=== PATIENT | male | born 1960 | race Caucasian/White ===

== ENCOUNTER → 2018-09-22 | Emergency (ER) | payer MEDICAID ==
[~2018-09-22] VITALS: Ht 170.2 cm; Wt 70.5 kg
[~2018-09-22] MED LIST: AZIT-63 PO; BENZ-16 PO; HYDR-3965 PO; IBUP-1986 PO
[2018-09-22 18:54] VITALS: BP 157/103
== END | disposition home or self-care (01) ==
LOC: ER 18:28
DX: S22.42XA Multiple fractures of ribs, left side, initial encounter for closed fracture (principal); S01.81XA Laceration without foreign body of other part of head, initial encounter; S01.21XA Laceration without foreign body of nose, initial encounter; F12.90 Cannabis use, unspecified, uncomplicated; Z88.5 Allergy status to narcotic agent; Z79.2 Long term (current) use of antibiotics; Z79.899 Other long term (current) drug therapy; Y04.2XXA Assault by strike against or bumped into by another person, initial encounter; Y93.55 Activity, bike riding; Y92.410 Unspecified street and highway as the place of occurrence of the external cause; Y99.8 Other external cause status
CPT/HCPCS: 71045; 99283

== ENCOUNTER 2018-12-26 17:43 | Emergency (ER) | payer MEDICAID ==
[~2018-12-26] VITALS: Ht 170.2 cm; Wt 72.7 kg
[~2018-12-26 17:43] MED LIST changes: -BENZ-16 PO; -HYDR-3965 PO
[2018-12-26] MEDS ORDERED: ipratropium/albuterol 3ml nebule NEB ONE (18:40)
[2018-12-26] MEDS ORDERED: albuterol 2.5 MG/3 ML nebule NEB ONE (18:40)
[2018-12-26] MEDS ORDERED: predniSONE 20 mg tablet PO ONE (18:40)
[2018-12-26] MEDS ORDERED: ALBU8HFA PO (19:00)
[2018-12-26] MEDS ORDERED: FLUT100D2 INH (19:00)
[2018-12-26] MEDS ORDERED: PRED20TA PO (19:00)
[2018-12-26 19:08] VITALS: BP 158/90
== END 2018-12-26 19:10 | disposition home or self-care (01) ==
LOC: ER 17:43
DX: J44.1 Chronic obstructive pulmonary disease with (acute) exacerbation (principal); F17.200 Nicotine dependence, unspecified, uncomplicated; F12.90 Cannabis use, unspecified, uncomplicated; Z88.6 Allergy status to analgesic agent
CPT/HCPCS: 93005; 94640; 94760; 99283; J7512

== ENCOUNTER 2019-08-14 01:45 | Inpatient (IN) | payer MEDICAID ==
[2019-08-14] VITALS (7 sets, daily range): BP systolic 143–166; BP diastolic 85–106
[~2019-08-14] VITALS: Ht 170.2 cm; Wt 72.7 kg
[~2019-08-14 01:45] MED LIST changes: +ALBU8HFA PO; +FLUT100D2 INH
[2019-08-14] MEDS ORDERED: LORazepam 2 mg/ml vial IV ONE ×2 (01:55→04:30)
[2019-08-14] MEDS ORDERED: glucagon, human recombinant 1mg kit IV ONE (01:55)
[2019-08-14] MEDS ORDERED: pantoprazole 40 MG vial IV ONE (02:05)
[2019-08-14] MEDS ORDERED: ondansetron/PF 4mg/2ml inj IV ONE (02:05)
[2019-08-14] MEDS ORDERED: famotidine/PF 10 mg/ml inj IV ONE (02:05)
--- NOTE | 2019-08-14 02:13 | NUR ---
PO challanged performed per provider's order. Pt. tolerated 120cc of water with difficulty. Doctor made aware.
--- NOTE | 2019-08-14 02:41 | NUR ---
Pt. tolerated another 120cc of water with less difficulty. He reports pain after swallowing with some spasms.
--- NOTE | 2019-08-14 03:28 | NUR ---
Pt. resting quietly in bed. SPO2 WNL.
[2019-08-14] MEDS ORDERED: OMEP20CA15 PO (04:18)
--- NOTE | 2019-08-14 04:29 | NUR ---
Pt. report that his discomfort is increasing. VSS. Doctor made aware. N.O. received for ativan 1mg IV now.
[2019-08-14] MEDS ORDERED: LIDOcaine Viscous 15ml cup ONE (05:49)
[2019-08-14] MEDS ORDERED: fentaNYL/PF 50MCG/1 ML 2ML syringe ONE (05:49)
[2019-08-14] MEDS ORDERED: MIDAZolam 5mg/5ml vial ONE (05:49)
--- NOTE | 2019-08-14 07:13 | NUR ---
pt back from GI lab where VALERI whitley reports FB removed, Edwige-Smith tear noted and Schatzki ring placed. PTW. He is arousabale to voice.
[2019-08-14 08:34] LABS: BASOPHILS % (AUTO) 0.1 % (0-1); EOSINOPHILS % (AUTO) 0 % (0-6); HEMATOCRIT 47.5 % (42.0-52.0); LYMPHOCYTES # (AUTO) 0.6 X10'3 (1.1-4.8); LYMPHOCYTES % (AUTO) 4.3 % (21-51); MEAN CORPUSCULAR HEMOGLOBIN 33.4 PG (27.0-31.0); MEAN CORPUSCULAR HGB CONC 33.6 g/dL (33.0-36.5); MEAN CORPUSCULAR VOLUME 99.2 FL (78-98); MEAN PLATELET VOLUME 6.5 FL (7.4-10.4); MONOCYTES # (AUTO) 0.9 X10'3 (0-0.9); MONOCYTES % (AUTO) 6.5 % (2-12); NEUTROPHILS # (AUTO) 12.1 X10'3 (1.8-7.7); NEUTROPHILS % (AUTO) 89.1 % (42-75); PLATELET COUNT 265 X10'3 (140-440); RED BLOOD COUNT 4.78 X10'6 (4.70-6.10); RED CELL DISTRIBUTION WIDTH 12.9 % (11.5-14.5); WHITE BLOOD COUNT 13.6 X10'3 (4.5-11.0)
[2019-08-14 09:00] LABS: ALANINE AMINOTRANSFERASE 19 U/L (12-78); ALBUMIN 3.9 G/DL (3.4-5.0); ALBUMIN/GLOBULIN RATIO 1.3 (1.1-1.5); ALKALINE PHOSPHATASE 66 IU/L (46-116); ANION GAP 9 (8-16); ASPARTATE AMINO TRANSFERASE 18 U/L (10-37); BILIRUBIN,TOTAL 0.6 MG/DL (0.1-1.0); BLOOD UREA NITROGEN 16 MG/DL (7-18); BUN/CREATININE RATIO 24.2 (5.4-32.0); CALCIUM 8.3 MG/DL (8.5-10.1); CHLORIDE 105 MMOL/L (99-107); CREATININE 0.66 MG/DL (0.60-1.10); GLUCOSE 108 MG/DL (70-104); POTASSIUM 3.8 MMOL/L (3.5-5.1); SODIUM 139 MMOL/L (135-145); TOTAL CARBON DIOXIDE 24.8 MMOL/L (24-32); TOTAL PROTEIN 6.8 G/DL (6.4-8.2); TROPONIN I < 0.04 NG/ML (0.0-0.05); eGFR > 90 ML/MIN
[2019-08-14] MEDS ORDERED: HYDROcodone/acetaminophen 5mg/325mg tablet PO PRN (09:40)
[2019-08-14] MEDS ORDERED: potassium Cl 20 mEq SR tablet PO PRN ×2 (09:40)
[2019-08-14] MEDS ORDERED: magnesium 2GM in 50ml NS 50 ML IV PRN (09:40)
[2019-08-14] MEDS ORDERED: acetaminophen 325mg tablet PO PRN ×2 (09:40)
[2019-08-14] MEDS ORDERED: potassium CL 10mEq/100ml bag 100 ML IV PRN ×2 (09:40)
[2019-08-14] MEDS ORDERED: LORazepam 1 MG tablet PO PRN (09:40)
[2019-08-14] MEDS ORDERED: ondansetron/PF 4mg/2ml inj IV PRN (09:40)
[2019-08-14] MEDS ORDERED: LORazepam 2 mg/ml vial IV PRN (09:40)
[2019-08-14] MEDS ORDERED: magnesium Cl slow-release 64mg tablet PO PRN (09:40)
[2019-08-14] MEDS ORDERED: magnesium 4gm in 100ml NS 100 ML IV PRN (09:40)
[2019-08-14] MEDS ORDERED: mag hydrox/Alum hydrox/simeth 30ml oral suspension PO PRN (09:40)
--- NOTE | 2019-08-14 10:44 | NUR ---
RECEIVED REPORT FROM ER NURSE
[2019-08-14] MEDS: normal saline 1000ml 1,000 ML IV SCH ×2 (12:14→22:05)
[2019-08-14 12:54] LABS: BASOPHILS % (AUTO) 0.1 % (0-1); EOSINOPHILS % (AUTO) 0.1 % (0-6); HEMATOCRIT 47.1 % (42.0-52.0); HEMOGLOBIN 15.7 g/dl (14.0-17.9); LYMPHOCYTES # (AUTO) 0.6 X10'3 (1.1-4.8); LYMPHOCYTES % (AUTO) 5.5 % (21-51); MEAN CORPUSCULAR HGB CONC 33.4 g/dL (33.0-36.5); MEAN CORPUSCULAR VOLUME 98.7 FL (78-98); MEAN PLATELET VOLUME 6.8 FL (7.4-10.4); MONOCYTES # (AUTO) 0.9 X10'3 (0-0.9); MONOCYTES % (AUTO) 7.9 % (2-12); NEUTROPHILS # (AUTO) 9.8 X10'3 (1.8-7.7); NEUTROPHILS % (AUTO) 86.4 % (42-75); PLATELET COUNT 275 X10'3 (140-440); RED BLOOD COUNT 4.77 X10'6 (4.70-6.10); RED CELL DISTRIBUTION WIDTH 13.2 % (11.5-14.5); WHITE BLOOD COUNT 11.4 X10'3 (4.5-11.0)
[2019-08-14] MEDS: metroNIDAZOLE-Flagyl 500mg/NS 100 ML IV SCH ×2 (15:57→23:42)
[2019-08-14] MEDS: morphine 2 MG/ML inj. syringe IV PRN ×2 (17:57→22:05)
--- NOTE | 2019-08-14 18:10 | NUR ---
Patient in room ORTHO 4013. I have received report from VALERI Bryant and had the opportunity to ask questions and assume patient care.
--- NOTE | 2019-08-14 18:19 | NUR ---
gave report to sy taylor
[2019-08-14] MEDS: heparin, porcine 5000 units/ml vial SQ SCH (19:58)
[2019-08-14] MEDS: pantoprazole 40mg Tablet.DR PO SCH (19:58)
[2019-08-14] MEDS: docusate sod 100mg capsule PO SCH (20:00)
[2019-08-14] MEDS: K and/or MAG REPLACEMENT MC SCH (20:00)
[2019-08-14] MEDS ORDERED: temazepam 15mg capsule PO PRN (21:00)
[2019-08-15] MEDS: morphine 2 MG/ML inj. syringe IV PRN (03:14)
[2019-08-15 04:57] LABS: BASOPHILS % (AUTO) 0.1 % (0-1); EOSINOPHILS % (AUTO) 0.7 % (0-6); HEMATOCRIT 43.9 % (42.0-52.0); HEMOGLOBIN 14.8 g/dl (14.0-17.9); LYMPHOCYTES # (AUTO) 1.2 X10'3 (1.1-4.8); LYMPHOCYTES % (AUTO) 19.8 % (21-51); MEAN CORPUSCULAR HEMOGLOBIN 33.6 PG (27.0-31.0); MEAN CORPUSCULAR HGB CONC 33.8 g/dL (33.0-36.5); MEAN CORPUSCULAR VOLUME 99.3 FL (78-98); MONOCYTES # (AUTO) 0.7 X10'3 (0-0.9); MONOCYTES % (AUTO) 11.4 % (2-12); NEUTROPHILS # (AUTO) 4.2 X10'3 (1.8-7.7); PLATELET COUNT 277 X10'3 (140-440); RED BLOOD COUNT 4.42 X10'6 (4.70-6.10); RED CELL DISTRIBUTION WIDTH 13.1 % (11.5-14.5); WHITE BLOOD COUNT 6.1 X10'3 (4.5-11.0)
[2019-08-15 05:06] LABS: ALANINE AMINOTRANSFERASE 16 U/L (12-78); ALBUMIN 3.2 G/DL (3.4-5.0); ALBUMIN/GLOBULIN RATIO 1.1 (1.1-1.5); ALKALINE PHOSPHATASE 60 IU/L (46-116); ANION GAP 5 (8-16); ASPARTATE AMINO TRANSFERASE 14 U/L (10-37); BILIRUBIN,TOTAL 0.9 MG/DL (0.1-1.0); BLOOD UREA NITROGEN 11 MG/DL (7-18); BUN/CREATININE RATIO 12.2 (5.4-32.0); CALCIUM 8.3 MG/DL (8.5-10.1); CHLORIDE 103 MMOL/L (99-107); GLUCOSE 101 MG/DL (70-104); POTASSIUM 3.7 MMOL/L (3.5-5.1); SODIUM 137 MMOL/L (135-145); TOTAL CARBON DIOXIDE 29.3 MMOL/L (24-32); TOTAL PROTEIN 6.2 G/DL (6.4-8.2); eGFR 87 ML/MIN
[2019-08-15] MEDS: normal saline 1000ml 1,000 ML IV SCH (05:36)
[2019-08-15 06:00] VITALS: BP 141/93
--- NOTE | 2019-08-15 06:39 | NUR ---
Problems reprioritized. Patient report given, questions answered & plan of care reviewed with VALERI Gibbs.
--- NOTE | 2019-08-15 06:47 | NUR ---
Patient in room ORTHO 4013. I have received report from VALERI Little and had the opportunity to ask questions and assume patient care.
[2019-08-15] MEDS: K and/or MAG REPLACEMENT MC SCH (07:36)
[2019-08-15] MEDS: metroNIDAZOLE-Flagyl 500mg/NS 100 ML IV SCH (07:42)
[2019-08-15] MEDS: pantoprazole 40mg Tablet.DR PO SCH (07:43)
[2019-08-15] MEDS: docusate sod 100mg capsule PO SCH (07:43)
[2019-08-15] MEDS: heparin, porcine 5000 units/ml vial SQ SCH (07:43)
[2019-08-15 10:00] VITALS: BP 160/91
[2019-08-15 12:37] LABS: BASOPHILS % (AUTO) 0.2 % (0-1); EOSINOPHILS # (AUTO) 0.1 X10'3 (0-0.9); EOSINOPHILS % (AUTO) 1.1 % (0-6); HEMOGLOBIN 15.2 g/dl (14.0-17.9); LYMPHOCYTES # (AUTO) 1.4 X10'3 (1.1-4.8); LYMPHOCYTES % (AUTO) 25.4 % (21-51); MEAN CORPUSCULAR HEMOGLOBIN 33.4 PG (27.0-31.0); MEAN CORPUSCULAR HGB CONC 33.8 g/dL (33.0-36.5); MEAN PLATELET VOLUME 6.7 FL (7.4-10.4); MONOCYTES # (AUTO) 0.6 X10'3 (0-0.9); MONOCYTES % (AUTO) 11.6 % (2-12); NEUTROPHILS # (AUTO) 3.4 X10'3 (1.8-7.7); NEUTROPHILS % (AUTO) 61.7 % (42-75); PLATELET COUNT 269 X10'3 (140-440); RED BLOOD COUNT 4.55 X10'6 (4.70-6.10); RED CELL DISTRIBUTION WIDTH 13.3 % (11.5-14.5); WHITE BLOOD COUNT 5.6 X10'3 (4.5-11.0)
--- NOTE | 2019-08-15 13:15 | NUR ---
Patient discharged home via self and taken from unit via ambulation with primary nurse. Patient PIV removed with cannula intact, tele monitor removed and tele chambers notified. Patient alert, oriented and in no apparent distress at time of discharge. Patient was given discharge instructions and time for questions and answers. Patient stated an understanding of these instructions. Primary nurse ensured that the patient had Dr. Peck's phone number so that he can schedule a follow-up appointment with him. Patient was also encouraged to find a PCP so that he can see an physician regularly. Patient stated that he would follow-up. Patient was educated on full liquid diet and stated that he felt comfortable with the information.
[2019-08-15] MEDS ORDERED: PROP10TA10 PO (17:53)
--- NOTE | 2019-08-15 17:58 | NUR ---
Dr. Lan called and stated that due to the patient's blood pressure being elevated here at the hospital prior to discharge he called in Propranolol to the patient's preferred pharmacy and asked that the primary nurse speak to him about this. Dr. Lan also asked that we encourage the patient again to establish PCP. Patient was contacted by primary nurse and patient stated that he does not want to take blood pressure medications and stated he spoke to another MD at the hospital about not wanting to take them. Patient was educated about the risks of running a high blood pressure and patient stated an understanding however, still stated he did not want to take the medication. Patient was informed the medication had been called in so if he changed his mind it was there. He was also reminded to follow up with a PCP, to which he stated that he was going to do that tomorrow.
== END 2019-08-15 13:05 | disposition home or self-care (01) | DRG 254 ==
LOC: ER 01:46 → ED HOLD 09:36 → ORTHO 4S 10:55 → OBSVTOIN 08-15 09:50
PROVIDERS: ADMIT Internal Medicine; ATTEND Internal Medicine
PROC: 0DB68ZX Excision of Stomach, Via Natural or Artificial Opening Endoscopic, Diagnostic (ICD-10-PCS; principal; 2019-08-14)
DX: T18.198A Other foreign object in esophagus causing other injury, initial encounter (principal); K22.6 Gastro-esophageal laceration-hemorrhage syndrome; F12.10 Cannabis abuse, uncomplicated; F17.200 Nicotine dependence, unspecified, uncomplicated; X58.XXXA Exposure to other specified factors, initial encounter; K22.2 Esophageal obstruction; K29.71 Gastritis, unspecified, with bleeding; K21.9 Gastro-esophageal reflux disease without esophagitis; J44.9 Chronic obstructive pulmonary disease, unspecified; Y93.89 Activity, other specified; Y92.89 Other specified places as the place of occurrence of the external cause; Y99.8 Other external cause status
CPT/HCPCS: 36415; 43239; 71045; 80053; 83605; 83735; 84484; 85025; 87040; 87081; 96365; 96372; 96375; 99152; 99285; A4620; C9113; G0378; J1610; J1644; J2060; J2250; J2270; J2405; J3010; J3490; J7030; J7040

== ENCOUNTER 2020-03-21 06:36 | Emergency (ER) | payer MEDICAID ==
[~2020-03-21] VITALS: Ht 170.2 cm; Wt 70.5 kg
[~2020-03-21 06:36] MED LIST changes: -ALBU8HFA PO; -AZIT-63 PO; -FLUT100D2 INH; -IBUP-1986 PO; +OMEP20CA15 PO
[2020-03-21] MEDS ORDERED: PRED20TA PO (07:00)
[2020-03-21] MEDS ORDERED: prednisone 10mg tablet PO ONE (07:00)
[2020-03-21] MEDS ORDERED: prednisone 10mg tablet PO SCH (07:00)
[2020-03-21] MEDS ORDERED: ALBU8HFA PO (07:00)
== END 2020-03-21 07:30 | disposition home or self-care (01) ==
LOC: ER 06:37
DX: J44.1 Chronic obstructive pulmonary disease with (acute) exacerbation (principal); R06.02 Shortness of breath; R05 Cough; R06.2 Wheezing; Z20.828 Contact with and (suspected) exposure to other viral communicable diseases; F12.90 Cannabis use, unspecified, uncomplicated; Z88.5 Allergy status to narcotic agent; Z79.899 Other long term (current) drug therapy
CPT/HCPCS: 36415; 87635; 99283; J7512

== ENCOUNTER 2020-12-09 13:52 | Emergency (ER) | payer MEDICAID ==
[~2020-12-09] VITALS: Ht 170.2 cm; Wt 70.0 kg
--- NOTE | 2020-12-09 16:48 | NUR ---
While pt was waiting for a room in the ER he was given the following medications by the medic, Toradol 30mg, Morphine 8mg, and zofran 4mg.
[2020-12-09 17:14] LABS: BASOPHILS % (AUTO) 0.2 % (0-1); EOSINOPHILS # (AUTO) 0.1 X10'3 (0-0.9); EOSINOPHILS % (AUTO) 1.3 % (0-6); HEMOGLOBIN 15.2 g/dl (14.0-17.9); LYMPHOCYTES % (AUTO) 9.2 % (21-51); MEAN CORPUSCULAR HEMOGLOBIN 34.1 PG (27.0-31.0); MEAN CORPUSCULAR HGB CONC 34.5 g/dL (33.0-36.5); MEAN CORPUSCULAR VOLUME 98.9 FL (78-98); MEAN PLATELET VOLUME 6.8 FL (7.4-10.4); MONOCYTES # (AUTO) 0.8 X10'3 (0-0.9); MONOCYTES % (AUTO) 7.1 % (2-12); NEUTROPHILS # (AUTO) 8.9 X10'3 (1.8-7.7); NEUTROPHILS % (AUTO) 82.2 % (42-75); PLATELET COUNT 296 X10'3 (140-440); RED BLOOD COUNT 4.45 X10'6 (4.70-6.10); RED CELL DISTRIBUTION WIDTH 13.5 % (11.5-14.5); WHITE BLOOD COUNT 10.9 X10'3 (4.5-11.0)
[2020-12-09 17:18] LABS: ALANINE AMINOTRANSFERASE 30 U/L (12-78); ALBUMIN 3.7 G/DL (3.4-5.0); ALBUMIN/GLOBULIN RATIO 1.3 (1.1-1.5); ALKALINE PHOSPHATASE 85 IU/L (46-116); ANION GAP 7 (8-16); ASPARTATE AMINO TRANSFERASE 20 U/L (10-37); BILIRUBIN,TOTAL 0.3 MG/DL (0.1-1.0); BLOOD UREA NITROGEN 19 MG/DL (7-18); BUN/CREATININE RATIO 21.8 (5.4-32.0); CALCIUM 8.2 MG/DL (8.5-10.1); CHLORIDE 108 MMOL/L (99-107); CREATININE 0.87 MG/DL (0.60-1.10); GLUCOSE 112 MG/DL (70-104); POTASSIUM 4.6 MMOL/L (3.5-5.1); SODIUM 143 MMOL/L (135-145); TOTAL PROTEIN 6.5 G/DL (6.4-8.2); eGFR 90 ML/MIN
[2020-12-09] MEDS ORDERED: propofol 10mg/ml 20ml vial IV ONE (17:30)
--- NOTE | 2020-12-09 18:45 | NUR ---
Reach 7 at bedside, report given, team to transfer pt to [facility]
[2020-12-09] MEDS ORDERED: morphine 5 MG/ML injection IV ONE (19:10)
[2020-12-10 06:39] VITALS: BP 161/83
== END 2020-12-09 19:00 ==
LOC: ER 13:53
DX: S82.102A Unspecified fracture of upper end of left tibia, initial encounter for closed fracture (principal); Z20.822 Contact with and (suspected) exposure to COVID-19; S82.832A Other fracture of upper and lower end of left fibula, initial encounter for closed fracture; S50.312A Abrasion of left elbow, initial encounter; J44.9 Chronic obstructive pulmonary disease, unspecified; Z72.89 Other problems related to lifestyle; F12.90 Cannabis use, unspecified, uncomplicated; Z79.899 Other long term (current) drug therapy; V89.2XXA Person injured in unspecified motor-vehicle accident, traffic, initial encounter; Y93.89 Activity, other specified; Y92.89 Other specified places as the place of occurrence of the external cause; Y99.8 Other external cause status
CPT/HCPCS: 27530; 27781; 36415; 71045; 73560; 73590; 80053; 85025; 87635; 94799; 99285; C9803; 27752

== ENCOUNTER 2021-05-20 18:36 | Emergency (ER) | payer MEDICAID ==
[~2021-05-20] VITALS: Ht 170.2 cm; Wt 72.2 kg
[2021-05-20 19:25] VITALS: BP 154/95
== END 2021-05-20 21:01 | disposition home or self-care (01) ==
LOC: ER 18:36
DX: R42 Dizziness and giddiness (principal); R43.9 Unspecified disturbances of smell and taste; R05.9 Cough, unspecified; Z20.822 Contact with and (suspected) exposure to COVID-19; J44.9 Chronic obstructive pulmonary disease, unspecified; F12.10 Cannabis abuse, uncomplicated; Z88.5 Allergy status to narcotic agent
CPT/HCPCS: 71045; 87635; 93005; 99285; C9803

== ENCOUNTER 2021-12-28 05:49 | Emergency (ER) | payer MEDICAID | END 2021-12-28 07:28 | disposition left against medical advice (07) | LOC: ER 05:49 | DX: T50.901A Poisoning by unspecified drugs, medicaments and biological substances, accidental (unintentional), initial encounter (principal); Z53.21 Procedure and treatment not carried out due to patient leaving prior to being seen by health care provider ==

== ENCOUNTER 2022-08-03 00:25 | Emergency (ER) | payer MEDICAID ==
[~2022-08-03] VITALS: Ht 167.6 cm; Wt 70.5 kg
[2022-08-03] MEDS ORDERED: meperidine/PF 50mg/ml syringe IV ONE (03:20)
[2022-08-03] MEDS ORDERED: nitroGLYCERIN 0.4mg SUBLingual tab SL PRN (03:20)
[2022-08-03] MEDS ORDERED: normal saline 1000ML IV soln IVB ONE (03:25)
[2022-08-03 05:00] VITALS: BP 139/94
== END 2022-08-03 05:18 | disposition home or self-care (01) ==
LOC: ER 00:26
DX: T18.198A Other foreign object in esophagus causing other injury, initial encounter (principal); X58.XXXA Exposure to other specified factors, initial encounter; Y93.89 Activity, other specified; Y92.89 Other specified places as the place of occurrence of the external cause; Y99.8 Other external cause status
CPT/HCPCS: 96361; 96374; 99285; J2175; J7030

== ENCOUNTER 2023-06-20 23:01 | Emergency (ER) | payer MEDICAID ==
[~2023-06-20] VITALS: Ht 167.6 cm; Wt 66.3 kg
[2023-06-20 23:05] VITALS: TEMP 98.9
[2023-06-20] MEDS ORDERED: glucagon, human recombinant 1mg kit IM ONE (23:15)
[2023-06-20] MEDS: famotidine/PF 10 mg/ml inj IV ONE (23:15)
[2023-06-21] MEDS ORDERED: glucagon, human recombinant 1mg kit IV ONE (00:15)
[2023-06-21] MEDS: glucagon, human recombinant 1mg kit IV ONE (00:54)
[2023-06-21] MEDS: diazepam inj 5 MG/ML inj. IV ONE (00:54)
[2023-06-21] MEDS: nitroGLYCERIN 0.4mg SUBLingual tab SL STA (01:25)
[2023-06-21] MEDS ORDERED: normal saline 1000ML IV soln IVB ONE (01:45)
[2023-06-21 03:40] VITALS: BP 167/99; PULSE 95; RESP 20; O2SAT 98
== END 2023-06-21 03:43 | disposition home or self-care (01) ==
LOC: ER 23:02
DX: T18.128A Food in esophagus causing other injury, initial encounter (principal); J44.9 Chronic obstructive pulmonary disease, unspecified; K21.9 Gastro-esophageal reflux disease without esophagitis; F12.10 Cannabis abuse, uncomplicated; Z79.899 Other long term (current) drug therapy
CPT/HCPCS: 93005; 96374; 96375; 99284; J1610; J3360; J3490

== ENCOUNTER 2024-06-20 23:52 | Emergency (ER) | payer MEDICAID ==
[~2024-06-20] VITALS: Ht 167.6 cm; Wt 67.3 kg
[2024-06-20 23:54] VITALS: BP 120/63
[2024-06-21] MEDS ORDERED: DEC4T PO (00:10)
[2024-06-21] MEDS ORDERED: ALBU8HFA PO (00:10)
[2024-06-21] MEDS: ipratropium/albuterol 3ml nebule NEB ONE (00:22)
[2024-06-21] MEDS: dexamethasone 4mg tablet PO ONE (00:23)
[2024-06-21 00:26] VITALS: PULSE 99; RESP 16; O2SAT 96
[2024-06-21 00:30] VITALS: PULSE 112; RESP 16; O2SAT 96
[2024-06-21 01:07] VITALS: RESP 14; TEMP 98.5
== END 2024-06-21 01:07 | disposition home or self-care (01) ==
LOC: ER 23:53
DX: J45.901 Unspecified asthma with (acute) exacerbation (principal); K21.9 Gastro-esophageal reflux disease without esophagitis; J44.9 Chronic obstructive pulmonary disease, unspecified; M19.90 Unspecified osteoarthritis, unspecified site; F12.90 Cannabis use, unspecified, uncomplicated; Z88.5 Allergy status to narcotic agent; Z79.899 Other long term (current) drug therapy; Z72.89 Other problems related to lifestyle
CPT/HCPCS: 99283

== ENCOUNTER 2024-08-09 09:19 | Emergency (ER) | payer MEDICAID ==
[~2024-08-09] VITALS: Ht 167.6 cm; Wt 63.4 kg
--- NOTE | 2024-08-09 09:33 | ELECTROCARDIOGRAPH REPORT ---
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 Ruy Bonilla Measurements Intervals [place] Rate: 98 P: 84 TN: 132 QRS: 84 QRSD: 85 T: 77 QT: 346 QTc: 442 Interpretive Statements Sinus rhythm Right atrial enlargement Borderline right axis deviation Electronically Signed On 08-09-2024 19:21:[address] Ruy Bonilla Please click the below link to view image of tracing.
[2024-08-09 09:45] LABS: EOSINOPHILS # (AUTO) 0.5 X10'3 (0-0.9); HEMOGLOBIN 15.9 g/dl (14.0-17.9); LYMPHOCYTES # (AUTO) 1.2 X10'3 (1.1-4.8); LYMPHOCYTES % (AUTO) 28.7 % (21-51); MEAN CORPUSCULAR HEMOGLOBIN 33.1 PG (27.0-31.0); MEAN CORPUSCULAR HGB CONC 34.7 g/dL (33.0-36.5); MEAN CORPUSCULAR VOLUME 95.5 FL (78-98); MEAN PLATELET VOLUME 6.5 FL (7.4-10.4); MONOCYTES # (AUTO) 0.4 X10'3 (0-0.9); MONOCYTES % (AUTO) 9.1 % (2-12); NEUTROPHILS # (AUTO) 2.1 X10'3 (1.8-7.7); NEUTROPHILS % (AUTO) 49.2 % (42-75); PLATELET COUNT 318 X10'3 (140-440); RED BLOOD COUNT 4.81 X10'6 (4.70-6.10); RED CELL DISTRIBUTION WIDTH 13.9 % (11.5-14.5); WHITE BLOOD COUNT 4.2 X10'3 (4.5-11.0)
[2024-08-09 10:04] LABS: ALANINE AMINOTRANSFERASE 20 U/L (12-78); ALBUMIN 3.8 G/DL (3.4-5.0); ALBUMIN/GLOBULIN RATIO 1.2 (1.1-1.5); ALKALINE PHOSPHATASE 80 IU/L (46-116); ANION GAP 6 (8-16); ASPARTATE AMINO TRANSFERASE 13 U/L (10-37); BILIRUBIN,TOTAL 0.5 MG/DL (0.1-1.0); BLOOD UREA NITROGEN 13 MG/DL (7-18); BUN/CREATININE RATIO 17.3 (10.0-20.0); CALCIUM 8.8 MG/DL (8.5-10.1); CHLORIDE 103 MMOL/L (99-107); CREATININE 0.75 MG/DL (0.60-1.10); GLUCOSE 126 MG/DL (70-104); POTASSIUM 3.6 MMOL/L (3.5-5.1); SODIUM 141 MMOL/L (135-145); TOTAL CARBON DIOXIDE 32.1 MMOL/L (24-32); TOTAL PROTEIN 6.9 G/DL (6.4-8.2); eCRCL 90 ML/MIN; eGFR > 90 ML/MIN
[2024-08-09 10:08] LABS: PRO BRAIN NATRIURETIC PEPTIDE 48 PG/ML (0-125)
--- NOTE | 2024-08-09 10:20 | RADIOLOGY REPORT ---
EXAM: DI CHEST,SINGLE VIEW Indication: CP Technique: Single frontal view of the chest was obtained Comparison: CHEST,SINGLE VIEW on DOS: 05/20/21, CHEST,SINGLE VIEW on DOS: 12/09/20, CHEST,SINGLE VIEW on DOS: 08/14/19 FINDINGS: Lines and Tubes: None Lungs: No focal consolidation. Pleura: No effusion. No pneumothorax. Cardiomediastinal contours: Unremarkable Bones: No acute osseous abnormality. Chronic left rib fracture. IMPRESSION: No acute cardiopulmonary disease.
--- NOTE | 2024-08-09 10:41 | Physician Documentation ---
History of Present Illness ~ Chief Complaint: Shortness of Breath Stated Complaint: DIFF BREATHING Time Seen by MD: 10:16 Primary Medical Doctor: NONE HPI This 64-year-old male presents with one-week of shortness of breath, wheezing, and cough productive of clear sputum worse at night and without chest pain or fever. Patient reports that he was seen here for similar symptoms six weeks ago and prescribed an albuterol inhaler which does provide some relief though he reports does not provide long-lasting relief, patient reports history of similar episodes. Patient reports history of adult onset asthma and GERD. Patient reports he takes no daily medications. Medication Reconciliation Allergies: Coded Allergies: No Known Drug Allergies (Verified Allergy, Unknown, 08/14/19) codeine (Verified Adverse Reaction, Unknown, NIGHTMARES, 08/14/19) Scheduled Azithromycin (Azithromycin), 1 TAB PO UD Omeprazole (Omeprazole), 2 CAP PO BID Omeprazole (Prilosec), 1 CAP PO DAILY Prednisone* (Prednisone*), 3 TAB PO DAILY Scheduled PRN Ipratropium/Albuterol Sulfate (Duoneb 2.5-0.5 Mg/3 Ml Soln), 1 VIAL NEB Q12H PRN for SOB or wheezing albuterol inhaler (Pro-Air Inhaler), 1-2 PUFFS PO Q4H PRN for shortness of breath Durable Medical Equipment Nebulizer and Compressor (Compressor Nebulizer System), EA NEB PRN PRN for SOB or wheezing, (DME) Past Medical History Past Medical History: Asthma, COPD, *GI/HEPATOBILIARY*, GERD, Peptic Ulcer Disease, *MUSCULOSKELETAL*, Arthritis Past Surgical History: noncontributory Alcohol Use: Occasionally Drug Use: marijuana Lives with: Family Lives In: Home Physical Exam Vital Signs: Temperature: 97.7, Source: Temporal, Heart Rate: 99, Respiratory Rate: 18, BP: 149/79, Pulse Oximetry: 99, Weight: 63.400 Physical Exam VITALS: Reviewed and as above. GENERAL: Alert and oriented, nontoxic appearing, no apparent distress. RESPIRATORY: Expiratory wheezes in all lung cortés, no respiratory distress, speaking full clear sentences CHEST: No accessory muscle use, no retractions CV: Regular rate, rhythm, no murmur, no edema Progress Progress Note 1148: On reassessment patient has clear lung sounds in all lung cortés, patient reports feeling much better after DuoNeb treatment. Results/Orders Results/Orders Orders - PIERRE METZGER Svn Treatment (08/09/24 10:34) Completed Orders - PIERRE METZGER Prednisone Tablet (Prednisone Tablet) (08/09/24 10:35) Ipratropium/Albuterol Nebule (Ipratrop/A (08/09/24 10:35) Vital Signs 08/09/24 08/09/24 08/09/24 08/09/24 09:21 10:30 10:49 10:57 Temp 97.7 Pulse 99 93 78 77 Resp 18 24 16 16 B/P (MAP) 149/79 176/102 (126) Pulse Ox 99 95 96 100 O2 Delivery Room Air* Room Air* O2 Flow Rate 0 0 0 FiO2 21 21 08/09/24 08/09/24 11:30 12:08 Temp 97.7 Pulse 79 79 Resp 28 20 B/P (MAP) 151/101 (118) 151/101 Pulse Ox 98 98 O2 Flow Rate 0 Laboratory Tests Test 08/09/24 09:31 White Blood Count 4.2 L Red Blood Count 4.81 Hemoglobin 15.9 Hematocrit 46.0 Mean Corpuscular Volume 95.5 Mean Corpuscular Hemoglobin 33.1 H Mean Corpuscular Hemoglobin Concent 34.7 Red Cell Distribution Width 13.9 Platelet Count 318 Mean Platelet Volume 6.5 L Neutrophils (%) (Auto) 49.2 Lymphocytes (%) (Auto) 28.7 Monocytes (%) (Auto) 9.1 Eosinophils (%) (Auto) 12.0 H Basophils (%) (Auto) 1.0 Neutrophils # (Auto) 2.1 Lymphocytes # (Auto) 1.2 Monocytes # (Auto) 0.4 Eosinophils # (Auto) 0.5 Basophils # (Auto) 0.0 CBC Comment Sodium Level 141 Potassium Level 3.6 Chloride Level 103 Carbon Dioxide Level 32.1 H Anion Gap 6 L Blood Urea Nitrogen 13 Creatinine 0.75 Estimated GFR/1.73 m2 > 90 BUN/Creatinine Ratio 17.3 Glucose Level 126 H Calcium Level 8.8 Total Bilirubin 0.5 Aspartate Amino Transf (AST/SGOT) 13 Alanine Aminotransferase (ALT/SGPT) 20 Alkaline Phosphatase 80 Troponin I High Sensitivity 9 Pro-B-Type Natriuretic Peptide 48 Total Protein 6.9 Albumin 3.8 Globulin 3.1 Albumin/Globulin Ratio 1.2 Chemistry Comments EKG/XRAY/CT/US/VASC/MRI EKG : Additional Comment EKG interpreted by myself as sinus rhythm at a rate of 98, normal axis, no ST- elevation or depression, no ectopy Chest X-Ray : Additional Comments EXAM: DI CHEST,SINGLE VIEW Indication: CP Technique: Single frontal view of the chest was obtained Comparison: CHEST,SINGLE VIEW on DOS: 05/20/21, CHEST,SINGLE VIEW on DOS: 12/09/20, CHEST,SINGLE VIEW on DOS: 08/14/19 FINDINGS: Lines and Tubes: None Lungs: No focal consolidation. Pleura: No effusion. No pneumothorax. Cardiomediastinal contours: Unremarkable Bones: No acute osseous abnormality. Chronic left rib fracture. IMPRESSION: No acute cardiopulmonary disease. Electronically Signed by:FARHANA SWEENEY MD Date & Time: 08/09/24 101 Dictated by: FARHANA SWEENEY MD Dictation date and time: 08/09/24 1017 I have reviewed and agree with the radiology report. I have reviewed and interpreted the imaging as: No focal consolidation or pneumothorax Medical Decision Making Findings This 64-year-old male presented with one-week of shortness of breath, wheezing, and cough productive of clear sputum worse at night and without chest pain or fever and expiratory wheezes in all lung cortés on exam and without evidence of pneumonia, pneumothorax, or pulmonary edema on chest x-ray, history and physical is consistent with a COPD or asthma exacerbation especially given patient's recent treatment for similar concern without a formal diagnosis of COPD or asthma. Otherwise patient's physical exam was benign and vital signs stable without evidence of hypoxia, labs did not demonstrate evidence of infection or metabolic derangement. It was reassuring these symptoms were not accompanied by chest pain and patient's EKG did not demonstrate evidence of cardiac ischemia or infarction along with a non elevated cardiac troponin. Patient was treated with a single DuoNeb treatment which provided complete relief of his wheezing and patient reported significant improvement in feeling of shortness of breath. Patient reported feeling much better and wished to be discharged. Patient is ap propriate for outpatient follow up and has been advised he must follow up with his primary care provider for further management of the symptoms, patient was started on a course of steroids, albuterol inhaler and a DuoNeb nebulizer were prescribed. Additionally given patient's history of GERD he was started on a PPI as this may be an exacerbating factor of his respiratory problems. Patient provided careful return to care precautions which she verbalized understanding of. Differential Dx:Considerations: Include: anxiety, cardiogenic shock, CHF, COPD, myocardial infarction, pneumonia, pneumonitis, pneumothorax, pulmonary embolism, respiratory distress, respiratory failure, sinusitis, upper resp. infection Departure Disposition: HOME / SELF CARE / HOMELESS Impression: Primary Impression: Acute exacerbation of chronic obstructive airways disease Condition: Improved Discharge Instructions: Chronic Obstructive Pulmonary Disease Exacerbation, [id number] Additional Instructions: Based on your history I feel you need to be seen by primary care provider for further workup of possible COPD. I am treating your symptoms today as a COPD exacerbation based on your history though we have not formally diagnosed you with COPD. Given your history of acid reflux I am also placing you on 30 days of a acid lubricating specialist as chronic acid reflux can cause chronic cough and shortness of breath. Please take the prescribed prednisone as prescribed, please take the antibiotics as prescribed. Please use the prescribed albuterol inhaler as needed for shortness of breath wheezing, you may also use the prescribed duo neb treatments for shortness of breath or wheezing that is not controlled with your albuterol inhaler. Please follow up with your primary care provider in the next few days. Please return to the emergency department for any new or worsening concerning symptoms including but not limited to difficulty breathing, fever, or chest pain. Referrals: NO PRIMARY CARE PROVIDER (PCP) Prescriptions Prednisone* (Prednisone*) 20 Mg Tablet 3 TAB PO DAILY for 5 Days, #15 TAB Prov: PIERRE METZGER 08/09/24 Nebulizer and Compressor (Compressor Nebulizer System) 1 Each Each EA NEB PRN PRN for SOB or wheezing, #1 Prov: PIERRE METZGER 08/09/24 albuterol inhaler (Pro-Air Inhaler) 8.5 Gm Inhaler 1-2 PUFFS PO Q4H PRN for shortness of breath, #1 INH Prov: PIERRE METZGER 08/09/24 Azithromycin (Azithromycin) 250 Mg Tablet 1 TAB PO UD for 5 Days, #6 TAB 2 the first day followed by 1 for days 2-5 Prov: PIERRE METZGER 08/09/24 Ipratropium/Albuterol Sulfate (Duoneb 2.5-0.5 Mg/3 Ml Soln) 0.5 Mg-3 Mg (2.5 Mg Base)/3 Ml Ampul.neb 1 VIAL NEB Q12H PRN for SOB or wheezing for 30 Days, #180 ML 0 Refills Prov: PIERRE METZGER 08/09/24 Omeprazole (Prilosec) 40 Mg Capsule 1 CAP PO DAILY for 30 Days, #30 CAP Prov: PIERRE METZGER [facility] 08/09/24 Education Educated: Patient Educated regarding: diagnosis, treatment, prognosis, need for follow up Signature Scribe Signature: No scribe Attestation: The note accurately reflects work and decisions made by me.CYRIL Solis 08/09/24 23:09 PIERRE METZGER Aug 09, 2024 10:41
[2024-08-09] MEDS: ipratropium/albuterol 3ml nebule NEB ONE (10:48)
[2024-08-09 10:49] VITALS: PULSE 78; RESP 16; O2SAT 96
[2024-08-09 10:57] VITALS: PULSE 77; RESP 16; O2SAT 100
[2024-08-09] MEDS ORDERED: ALBU8HFA PO (11:03)
[2024-08-09] MEDS ORDERED: AZIT250T82 PO (11:03)
[2024-08-09] MEDS ORDERED: IPRA3AMP31 NEB (11:03)
[2024-08-09] MEDS ORDERED: OMEP40CA21 PO (11:03)
[2024-08-09] MEDS ORDERED: NEBU-245 NEB (11:03)
[2024-08-09] MEDS: predniSONE 20 mg tablet PO ONE (11:20)
[2024-08-09 12:08] VITALS: BP 151/101; PULSE 79; RESP 20; TEMP 97.7; O2SAT 98
[2024-08-09] MEDS ORDERED: PRED20TA PO (16:16)
== END 2024-08-09 12:05 | disposition home or self-care (01) ==
LOC: ER 09:20
DX: J44.1 Chronic obstructive pulmonary disease with (acute) exacerbation (principal); M19.90 Unspecified osteoarthritis, unspecified site
CPT/HCPCS: 36415; 71045; 80053; 83880; 84484; 85025; 93005; 94640; 99285; J7512; 94760

== ENCOUNTER 2024-08-27 14:27 | Inpatient (IN) | payer MEDICAID ==
[~2024-08-27] VITALS: Ht 167.6 cm; Wt 63.7 kg
[2024-08-27] VITALS (8 sets, daily range): BP systolic 163; BP diastolic 93; PULSE 94–103; RESP 17–22; TEMP 97.9; O2SAT 96–98
[~2024-08-27 14:27] MED LIST changes: +ALBU8HFA PO; +IPRA3AMP31 NEB; +NEBU-245 NEB; +OMEP40CA21 PO
[2024-08-27 15:12] LABS: BASOPHILS % (AUTO) 0.8 % (0-1); EOSINOPHILS # (AUTO) 0.6 X10'3 (0-0.9); EOSINOPHILS % (AUTO) 10.2 % (0-6); HEMATOCRIT 48.1 % (42.0-52.0); HEMOGLOBIN 16.5 g/dl (14.0-17.9); LYMPHOCYTES # (AUTO) 1.3 X10'3 (1.1-4.8); LYMPHOCYTES % (AUTO) 22.1 % (21-51); MEAN CORPUSCULAR HEMOGLOBIN 33.2 PG (27.0-31.0); MEAN CORPUSCULAR HGB CONC 34.4 g/dL (33.0-36.5); MEAN CORPUSCULAR VOLUME 96.6 FL (78-98); MEAN PLATELET VOLUME 6.6 FL (7.4-10.4); MONOCYTES # (AUTO) 0.4 X10'3 (0-0.9); MONOCYTES % (AUTO) 7.6 % (2-12); NEUTROPHILS # (AUTO) 3.5 X10'3 (1.8-7.7); NEUTROPHILS % (AUTO) 59.3 % (42-75); PLATELET COUNT 333 X10'3 (140-440); RED BLOOD COUNT 4.98 X10'6 (4.70-6.10); RED CELL DISTRIBUTION WIDTH 14.1 % (11.5-14.5); WHITE BLOOD COUNT 5.8 X10'3 (4.5-11.0)
--- NOTE | 2024-08-27 15:19 | RADIOLOGY REPORT ---
CHEST RADIOGRAPH Indication: SOB Technique: Frontal and lateral view of the chest was obtained Comparison: 08/09/2024. FINDINGS: Lines and Tubes: None Lungs: Clear Pleura: No effusion. No pneumothorax. Cardiomediastinal contours: Unremarkable Bones: Remote rib fractures again noted. Osseous degenerative changes. IMPRESSION: No acute cardiopulmonary abnormality.
[2024-08-27] MEDS: albuterol 2.5 MG/3 ML nebule NEB ONE (15:28)
[2024-08-27] MEDS: ipratropium 0.5 MG/2.5ML nebule IH ONE (15:28)
[2024-08-27 15:29] LABS: ALBUMIN 3.7 G/DL (3.4-5.0); ANION GAP 7 (8-16); BLOOD UREA NITROGEN 16 MG/DL (7-18); BUN/CREATININE RATIO 22.9 (10.0-20.0); CALCIUM 9.2 MG/DL (8.5-10.1); CHLORIDE 103 MMOL/L (99-107); GLUCOSE 123 MG/DL (70-104); PRO BRAIN NATRIURETIC PEPTIDE 40 PG/ML (0-125); SODIUM 139 MMOL/L (135-145); TOTAL CARBON DIOXIDE 28.8 MMOL/L (24-32); eCRCL 97 ML/MIN; eGFR > 90 ML/MIN
--- NOTE | 2024-08-27 15:37 | Physician Documentation ---
History of Present Illness ~ Chief Complaint: Difficulty Breathing Stated Complaint: SOB Time Seen by MD: 15:04 Primary Medical Doctor: NONE HPI 64-year-old male history of prior tobacco use 30 pack year history presenting for shortness of breath. He reports about a month ago being diagnosed with COPD in emergency department he was prescribed steroids and initially had no impro vement. He returned against the emergency department on 429 and was again given nebulizer and glucocorticoids. He is given 5 day course of prednisone with brief improvement in his symptoms. Medication Reconciliation Allergies: Coded Allergies: codeine (Verified Adverse Reaction, Unknown, NIGHTMARES, 08/27/24) Scheduled PRN Ipratropium/Albuterol Sulfate (Duoneb 2.5-0.5 Mg/3 Ml Soln), 1 VIAL NEB Q12H PRN for SOB or wheezing albuterol inhaler (Pro-Air Inhaler), 1-2 PUFFS PO Q4H PRN for shortness of breath Discontinued Medications Omeprazole (Omeprazole), 2 CAP PO BID Discontinued Reason: patient no longer taking Omeprazole (Prilosec), 1 CAP PO DAILY Discontinued Reason: patient no longer taking Durable Medical Equipment Nebulizer and Compressor (Compressor Nebulizer System), EA NEB PRN PRN for SOB or wheezing, (DME) Past Medical History Past Medical History: Asthma, COPD, *GI/HEPATOBILIARY*, GERD, Peptic Ulcer Disease, *MUSCULOSKELETAL*, Arthritis Past Surgical History: noncontributory Alcohol Use: Occasionally Drug Use: marijuana Lives with: Family Lives In: Home Review of Systems Constitutional: Denies: fever Respiratory: Reports: cough Cardiovascular: Denies: chest pain Gastrointestinal: Denies: abdominal pain Physical Exam Vital Signs: Temperature: 98.1, Source: Oral, Heart Rate: 97, Respiratory Rate: 22, BP: 159/97, Pulse Oximetry: 96, Weight: 63.700 Physical Exam Nontoxic resting comfortably in bed Scattered expiratory wheezes No distress Cardiac no murmur Lower extremity no edema Neuro awake alert oriented Progress Progress Note Reassess patient at 4:30 p.m. falling his nebulizer and steroids he is still diffusely wheezing Results/Orders Results/Orders Orders - ELIZABETH DAMON MD Chest,Two Views (08/27/24 14:45) Saline Lock (08/27/24 14:45) Oxygen (08/27/24 14:45) Page Hospitalist (08/27/24 16:44) Fill Out Med Reconciliation (08/27/24 16:44) Completed Orders - ELIZABETH DAMON MD Chest,Two Views (08/27/24 14:45) Cbc/Diff (08/27/24 14:45) BMP (08/27/24 14:45) PBNP (08/27/24 14:45) Methylprednisolone Sod Succ/Pf (Solu-Med (08/27/24 15:40) Electrocardiogram (08/27/24 ) Albuterol 2.5mg/3ml Nebule (Proventil 2. (08/27/24 16:45) * Rt Notification Q1H (08/27/24 16:44) MG (08/27/24 14:56) Vital Signs 08/27/24 08/27/24 08/27/24 08/27/24 14:34 15:29 15:35 15:40 Temp 98.1 Pulse 103 97 101 Resp 19 22 12 17 B/P (MAP) 159/97 Pulse Ox 97 96 98 O2 Delivery Room Air* Room Air* O2 Flow Rate 0 0 FiO2 21 21 08/27/24 16:09 Pulse 108 Resp 20 B/P (MAP) 149/100 (116) Pulse Ox 96 O2 Flow Rate 0 Laboratory Tests Test 08/27/24 14:56 White Blood Count 5.8 Red Blood Count 4.98 Hemoglobin 16.5 Hematocrit 48.1 Mean Corpuscular Volume 96.6 Mean Corpuscular Hemoglobin 33.2 H Mean Corpuscular Hemoglobin Concent 34.4 Red Cell Distribution Width 14.1 Platelet Count 333 Mean Platelet Volume 6.6 L Neutrophils (%) (Auto) 59.3 Lymphocytes (%) (Auto) 22.1 Monocytes (%) (Auto) 7.6 Eosinophils (%) (Auto) 10.2 H Basophils (%) (Auto) 0.8 Neutrophils # (Auto) 3.5 Lymphocytes # (Auto) 1.3 Monocytes # (Auto) 0.4 Eosinophils # (Auto) 0.6 Basophils # (Auto) 0.0 CBC Comment Sodium Level 139 Potassium Level 4.0 Chloride Level 103 Carbon Dioxide Level 28.8 Anion Gap 7 L Blood Urea Nitrogen 16 Creatinine 0.70 Estimated GFR/1.73 m2 > 90 BUN/Creatinine Ratio 22.9 H Glucose Level 123 H Lactic Acid Level 1.2 Calcium Level 9.2 Magnesium Level 2.0 Pro-B-Type Natriuretic Peptide 40 Albumin 3.7 Procalcitonin < 0.05 Chemistry Comments EKG/XRAY/CT/US/VASC/MRI EKG : Additional Comment EKG independently interpreted by myself time 3:47 p.m. indication shortness of breath normal sinus rhythm rate 91 normal axis normal intervals no ST or T-wave abnormality Chest X-Ray : Additional Comments Independent interpretation of chest x-ray shows no pneumothorax no consolidation normal cardiomediastinal silhouette Medical Decision Making Additional info obtained from: old records Findings Discharge summary August 2019 Additional Infomation COPD, asthma, congestive heart failure Departure Disposition: ADMITTED INPATIENT Admitted to Inpatient Unit: to hospitalist Impression: Primary Impression: Asthma exacerbation Qualified Codes: J45.41 - Moderate persistent asthma with (acute) exacerbat ion Referrals: NO PRIMARY CARE PROVIDER (PCP) Signature Scribe Signature: na Attestation: ELIZABETH Graves MD August 27, 2024 15:37
--- NOTE | 2024-08-27 15:49 | ELECTROCARDIOGRAPH REPORT ---
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
[2024-08-27] MEDS: methylPREDNISolone sod succ/PF 40mg inj. IV ONE (16:44)
[2024-08-27] MEDS ORDERED: albuterol 2.5 MG/3 ML nebule CONTNEB ONE (16:45)
[2024-08-27] MEDS ORDERED: potassium Cl 40MEQ/1/2NS 520ml 520 ML IV PRN (16:55)
[2024-08-27] MEDS ORDERED: mag hydrox/Alum hydrox/simeth 30ml oral suspension PO PRN (16:55)
[2024-08-27] MEDS ORDERED: acetaminophen 325mg tablet PO PRN (16:55)
[2024-08-27] MEDS ORDERED: ondansetron 4mg rapidly disintigrating tab PO PRN (16:55)
[2024-08-27] MEDS ORDERED: magnesium hydroxide 30ml (MOM) UD suspension PO PRN (16:55)
[2024-08-27] MEDS ORDERED: ondansetron/PF 4mg/2ml inj IV PRN (16:55)
[2024-08-27] MEDS ORDERED: potassium Cl 20 mEq SR tablet PO PRN ×2 (16:55)
[2024-08-27] MEDS ORDERED: magnesium sulf-water 4G/100mL 100 ML IV PRN (16:55)
[2024-08-27] MEDS ORDERED: magnesium sulf-water 2g/50mL 50 ML IV PRN (16:55)
[2024-08-27] MEDS ORDERED: iohexol 350MG/ML 100ml bottle IV ONE (17:18)
--- NOTE | 2024-08-27 17:34 | HISTORY AND PHYSICAL ---
History & Physical Providers to CC ~ History of Present Illness Reason for Admit\Complaint: Acute COPD exacerbation History of Present Illness Oziel Collins is a 64-year-old male with a past medical history of COPD who presented to the ED with chief complaint of progressively worsening shortness of breath x 3 weeks, not alleviated with albuterol. Patient denies prior HI/CAD, CVA, cardiac arrhythmia, DVT/PE, or GIB. Patient denies chest pain, palpitations, abdominal pain, n/v/d, fever, chills, dysuria. Initial diagnostic findings were notable for tachycardia, tachypnea, notable physical assessment of severe expiratory wheezing and rhonchi in bilateral upper and lower lungs. EKG shows sinus at a rate of [address]-T abnormalities. Patient is to be admitted for further workups and treatment. Allergies: Coded Allergies: No Known Drug Allergies (Verified Allergy, Unknown, 08/14/19) codeine (Verified Adverse Reaction, Unknown, NIGHTMARES, 08/14/19) Home Medications Home Medications Active Compressor Nebulizer System (Nebulizer and Compressor) 1 Each Each Ea NEB PRN PRN Pro-Air Inhaler (Albuterol) 8.5 Gm Inhaler 1-2 Puffs PO Q4H PRN Duoneb 2.5-0.5 Mg/3 Ml Soln (Ipratropium/Albuterol Sulfate) 0.5 Mg-3 Mg (2.5 Mg Base)/3 Ml Ampul.neb 1 Vial NEB Q12H PRN 30 Days Prilosec (Omeprazole) 40 Mg Capsule 1 Cap PO DAILY 30 Days Omeprazole 20 Mg Capsule. 2 Cap PO BID Past Medical History Past Medical History COPD Asthma Past Surgical History Surgical History Comment Orthopedic surgeries Past Social History Social History Comment Alcohol: 2 beers daily Tobacco: Former smoker of 40 pack year cigarette smoking history, quit five months ago Illicit drug use: Marijuana daily Living situation: Lives at home alone ROS ROS Other than positives in HPI, all 14 review of systems are negative Exam Vitals: Vital Signs Date Time Temp Pulse Resp B/P (MAP) Pulse Ox O2 Delivery O2 Flow Rate FiO2 08/27/24 16:09 108 20 149/100 (116) 96 0 08/27/24 15:40 Room Air* 21 08/27/24 14:34 98.1 General: A&Ox 3, NAD HEENT: Normocephalic, PERRLA Neck: Supple, trachea midline, no JVD Chest: Severe expiratory wheezing in upper b/l lungs, rhonchi and lower b/l lungs Cardiovascular: RRR, S1&S2 Abdomen: Soft and nontender Extremities: No cyanosis/clubbing/or edema Central Nervous System: CN II-XII intact, no focal deficits Musculoskeletal: No paraspinal muscle tenderness, no muscle spasm Skin: Warm and intact Diagnostic Data Last Recorded Lab Results: 08/27/24 1456 08/27/24 1456 Additional Plan # Acute COPD exacerbation # Hx of tobacco abuse # Sepsis vs SIRS -tachycardia, though reports recent frequent use of albuterol -start empirical abx, bronchodilators, steroid, prn supplemental oxygen -follow UA, CT chest, blood cx # HTN -start losartan, amlodipine, prn hydralazine DVT/VTE prophylaxis: heparin Code status: Full code I spent a total of 30 minutes discussing Advanced Care Planning measures with the patient. Advance care planning: Discussed with patient the importance of advance care planning in case of emergent situation. We discussed various resuscitative measures/ ACP with the patient at the time of admission. Patient voiced understanding and patient has decided on a full code status. Date of Service: August 27, 2024 Billing Provider: JUANITO MARTINEZ Common Visit Codes: 56910-BNDCRQY INP/OBS CARE (HIGH) Secondary Visit Codes: 33470-ITDCRDRJ CARE PLAN 30 MINUTES JUANITO MARTINEZ August 27, 2024 17:33
[2024-08-27] MEDS ORDERED: hydrALAZINE 20mg/ml inj. IV PRN (17:35)
--- NOTE | 2024-08-27 18:11 | RADIOLOGY REPORT ---
CTA Chest with intravenous contrast INDICATION: tachycardia, sob COMPARISON: None TECHNIQUE: Multidetector spiral CTA of the chest was performed of the chest with intravenous contrast . PULMONARY ANGIOGRAPHY PROTOCOL was utilized using a bolus-tracking technique centered on the main p ulmonary artery. Axial, coronal and sagittal multiplanar and MIP reformats were performed. Radiation Dose : 1. Chest: CTDI volume is 12 mGy. Dose-length product is 508 mGy*cm The dose indicators for CT are the volume Computed Tomography (CT) Dose Index (CTDIvol) and the Dose Length Product (DLP), and are measured in units of mGy and mGy-cm, respectively. These indicators are not patient dose, but values generated from the CT scanner acquisition factors. The report includes radiation exposure data for exposures received during this examination. Findings: Pulmonary artery: No pulmonary embolism Lower neck: Normal thyroid. Lungs: No focal consolidation, pleural effusion or pneumothorax. Heart/Vascular Structures: Normal heart size. No pericardial effusion. Lymph Nodes: No adenopathy Pleura: No pleural effusion or significant pneumothorax. Musculoskeletal: No acute osseous abnormality. Soft tissues: Normal. Upper abdomen: Limited portions of the upper abdomen are unremarkable. IMPRESSION: 1. No pulmonary embolism. 2. No acute thoracic finding.
[2024-08-27 18:28] LABS: BILIRUBIN,URINE NEGATIVE (Neg); CLARITY,URINE CLEAR (Clear); COLOR,URINE YELLOW (Yellow); GLUCOSE, URINE NEGATIVE (Neg); KETONES,URINE NEGATIVE (Neg); LEUKOCYTE ESTERASE ,URINE NEGATIVE (Neg); NITRITES, URINE NEGATIVE (Neg); OCCULT BLOOD,URINE NEGATIVE (Neg); PROTEIN,URINE NEGATIVE (Neg); UA COLLECTION TYPE VOIDED; UROBILINOGEN,URINE 0.2 E.U/dL (0.2-1.0)
[2024-08-27] MEDS: normal saline 1000ml 1,000 ML IV SCH (18:45)
[2024-08-27] MEDS: CefTRIAXone 2gm/D5W 50ml BAG 50 ML IV ONE (18:46)
[2024-08-27] MEDS: azithromycin/NS 500mg/250ml 250 ML IV ONE (18:48)
[2024-08-27] MEDS: amLODIPine 5mg tablet PO ONE (18:48)
[2024-08-27] MEDS: losartan 50mg tablet PO ONE (19:31)
[2024-08-27] MEDS: ipratropium/albuterol 3ml nebule NEB SCH (19:37)
[2024-08-27] MEDS: docusate sod 100mg capsule PO SCH (20:00)
[2024-08-27] MEDS: K and/or MAG REPLACEMENT MC SCH (20:02)
[2024-08-28] VITALS (8 sets, daily range): BP systolic 140–162; BP diastolic 86–90; PULSE 87–100; RESP 18–20; TEMP 98; O2SAT 93–96
[2024-08-28] MEDS: albuterol 2.5 MG/3 ML nebule NEB PRN (04:54)
[2024-08-28 06:01] LABS: BASOPHILS % (AUTO) 0.2 % (0-1); EOSINOPHILS % (AUTO) 0.1 % (0-6); HEMATOCRIT 45.6 % (42.0-52.0); HEMOGLOBIN 15.5 g/dl (14.0-17.9); LYMPHOCYTES # (AUTO) 0.7 X10'3 (1.1-4.8); LYMPHOCYTES % (AUTO) 11.4 % (21-51); MEAN CORPUSCULAR HEMOGLOBIN 32.8 PG (27.0-31.0); MEAN CORPUSCULAR VOLUME 96.6 FL (78-98); MEAN PLATELET VOLUME 6.9 FL (7.4-10.4); MONOCYTES # (AUTO) 0.2 X10'3 (0-0.9); MONOCYTES % (AUTO) 3.2 % (2-12); NEUTROPHILS # (AUTO) 5.6 X10'3 (1.8-7.7); NEUTROPHILS % (AUTO) 85.1 % (42-75); PLATELET COUNT 327 X10'3 (140-440); RED BLOOD COUNT 4.72 X10'6 (4.70-6.10); RED CELL DISTRIBUTION WIDTH 13.8 % (11.5-14.5); WHITE BLOOD COUNT 6.6 X10'3 (4.5-11.0)
[2024-08-28 06:25] LABS: ALANINE AMINOTRANSFERASE 20 U/L (12-78); ALBUMIN 3.5 G/DL (3.4-5.0); ALBUMIN/GLOBULIN RATIO 1.2 (1.1-1.5); ALKALINE PHOSPHATASE 73 IU/L (46-116); ANION GAP 9 (8-16); ASPARTATE AMINO TRANSFERASE 22 U/L (10-37); BILIRUBIN,TOTAL 0.4 MG/DL (0.1-1.0); BLOOD UREA NITROGEN 14 MG/DL (7-18); BUN/CREATININE RATIO 22.2 (10.0-20.0); CALCIUM 8.6 MG/DL (8.5-10.1); CHLORIDE 102 MMOL/L (99-107); CREATININE 0.63 MG/DL (0.60-1.10); GLUCOSE 126 MG/DL (70-104); MAGNESIUM 1.9 MG/DL (1.5-2.4); SODIUM 137 MMOL/L (135-145); TOTAL CARBON DIOXIDE 25.8 MMOL/L (24-32); TOTAL PROTEIN 6.5 G/DL (6.4-8.2); eCRCL 108 ML/MIN; eGFR > 90 ML/MIN
[2024-08-28] MEDS: CefTRIAXone 2gm/D5W 50ml BAG 50 ML IV SCH (08:10)
[2024-08-28] MEDS: losartan 50mg tablet PO SCH (08:11)
[2024-08-28] MEDS: methylPREDNISolone sod succ/PF 40mg inj. IV SCH (08:12)
[2024-08-28] MEDS: amLODIPine 5mg tablet PO SCH (08:12)
[2024-08-28] MEDS: azithromycin/NS 500mg/250ml 250 ML IV SCH (09:13)
[2024-08-28] MEDS ORDERED: LOSA50TA64 PO (09:36)
[2024-08-28] MEDS ORDERED: ALBU90AE INH (09:36)
[2024-08-28] MEDS ORDERED: NOR5T PO (09:36)
[2024-08-28] MEDS ORDERED: PRED10TA23 PO (09:36)
[2024-08-28] MEDS ORDERED: FLUT1DIS4 INH (09:36)
[2024-08-28] MEDS: amLODIPine 5mg tablet PO ONE (10:44)
--- NOTE | 2024-08-28 18:47 | DISCHARGE SUMMARY ---
Discharge Summary Providers to CC ~ Discharge Summary Admission Diagnosis: acute copd exacerbation Hospital Course DATE OF ADMISSION: 08/27/24 DATE OF DISCHARGE: 08/28/24 Discharge Diagnosis\Comment: Acute COPD exacerbation Hx of tobacco abuse SIRS HTN Operations\Procedures: None Consultants: None Complications: None Condition on DC: Stable New Medications: Albuterol Sulfate (Proair Respiclick) 90 Mcg Aer.pow.ba 2 PUFFS INH Q4HPRN PRN for shortness of breath, #1 EA 0 Refills Amlodipine Besylate (Amlodipine Besylate) 5 Mg Tablet 2 TAB PO DAILY for 30 Days, #60 TAB 0 Refills Fluticasone/Salmeterol (Advair 250-50 Diskus) 1 Each Disk.w.dev 1 PUFFS INH Q12H for 30 Days, #1 EA 0 Refills Prednisone (Prednisone) 10 Mg Tablet 0 PO DAILY, #42 TAB Take 6 tabs/day x2 days then 5 daily x2 days 4 daily x2 days 3 daily x2 days 2 daily x2 days 1 daily x2 days then stop. Losartan Potassium (Losartan Potassium) 50 Mg Tablet 50 MG PO DAILY for 90 Days, #90 TAB Continued Medications: Ipratropium/Albuterol Sulfate (Duoneb 2.5-0.5 Mg/3 Ml Soln) 0.5 Mg-3 Mg (2.5 Mg Base)/3 Ml Ampul.neb 1 VIAL NEB Q12H PRN for SOB or wheezing for 30 Days, #180 ML 0 Refills Discontinued Medications: albuterol inhaler (Pro-Air Inhaler) 8.5 Gm Inhaler 1-2 PUFFS PO Q4H PRN for shortness of breath, #1 INH Discharge Summary: History of Present Illness Oziel Collins is a 64-year-old male with a past medical history of COPD who presented to the ED with chief complaint of progressively worsening shortness of breath x 3 weeks, not alleviated with albuterol. Patient denies prior DE/CAD, CVA, cardiac arrhythmia, DVT/PE, or GIB. Patient denies chest pain, palpitations, abdominal pain, n/v/d, fever, chills, dysuria. Initial diagnostic findings were notable for tachycardia, tachypnea, hypertension, notable physical assessment of severe expiratory wheezing and rhonchi in bilateral upper and lower lungs. EKG shows sinus rhythm at a rate of [address]-T abnormalities. Patient is to be admitted for further workups and treatment. Hospital Course Further workups were unremarkable including chest x-ray, CTA chest, urinalysis. Patient was treated with empirical abx, bronchodilators, steroid, and antih ypertensives. Patient did not experience further complications throughout the entire hospital stay and remained clinically and hemodynamically stable. Patient was seen and examined on the day of discharge. Patient feels significantly better with start of treatment and verbalizes willingness to be discharged today. Physical assessment is notable for significantly improved wheezing of bilateral lung sounds. On day of discharge, vss and labs unremarkable. Patient remains on room air with oxygen saturation in 90s. Patient ambulates independently without hypoxia or experiencing shortness of breath. All labs, diagnostic workups, discharge plan discussed with patient in details during visit before discharge. All questions and concerns answered to the best of my professional knowledge. Patient is to be discharged to home to self and to follow-up with PCP within 2 weeks. Physical Exam General: A&Ox 3, NAD HEENT: Normocephalic, PERRLA Neck: Supple, trachea midline, no JVD Chest: Mild expiratory wheezing, b/l upper lungs Cardiovascular: RRR, S1&S2 GI: Soft and nontender Extremities: No cyanosis/clubbing/or edema BUCKLE GLUER: CN II-XII intact, no focal deficits Musculoskeletal: No paraspinal muscle tenderness, no muscle spasm Skin: Warm and intact *Problems/Diagnosis: (1) Acute exacerbation of chronic obstructive airways disease Status: Acute Total Time Spent on D/C: > 30 Minutes Date of Service: August 28, 2024 Billing Provider: JUANITO MARTINEZ Common Visit Codes: 51033-FRH/OBS DISCH DAY >30min JUANITO MARTINEZ August 28, 2024 18:40
[2024-08-29] MEDS ORDERED: amLODIPine 5mg tablet PO SCH (08:00)
== END 2024-08-28 12:22 | disposition home or self-care (01) | DRG 140 ==
LOC: ER 14:27 → ED HOLD 16:58 → ORTHO 4S 22:06
PROVIDERS: ADMIT Nurse Practitioner Family; ATTEND Nurse Practitioner Family
PROC: B32T1ZZ Computerized Tomography (CT Scan) of Left Pulmonary Artery using Low Osmolar Contrast (ICD-10-PCS; principal; 2024-08-27)
PROC: B3201ZZ Computerized Tomography (CT Scan) of Thoracic Aorta using Low Osmolar Contrast (ICD-10-PCS; 2024-08-27)
PROC: B32S1ZZ Computerized Tomography (CT Scan) of Right Pulmonary Artery using Low Osmolar Contrast (ICD-10-PCS; 2024-08-27)
DX: J44.1 Chronic obstructive pulmonary disease with (acute) exacerbation (principal); J45.41 Moderate persistent asthma with (acute) exacerbation; R65.10 Systemic inflammatory response syndrome (SIRS) of non-infectious origin without acute organ dysfunction; F12.90 Cannabis use, unspecified, uncomplicated; K21.9 Gastro-esophageal reflux disease without esophagitis; I10 Essential (primary) hypertension; Z79.51 Long term (current) use of inhaled steroids; Z79.899 Other long term (current) drug therapy; Z87.11 Personal history of peptic ulcer disease; Z87.891 Personal history of nicotine dependence; Z88.5 Allergy status to narcotic agent
CPT/HCPCS: 36415; 71046; 71275; 80048; 80053; 81003; 83605; 83735; 83880; 84145; 85025; 87040; 87081; 93005; 94640; 94760; 96365; 96368; 96375; 99285; G0378; J0456; J0696; J2919; J7030; Q9967